=== PATIENT | female | born 1990 | race Caucasian/White ===

== ENCOUNTER 2018-10-30 21:18 | Emergency (ER) | payer OTHER ==
[2018-10-30] MEDS ORDERED: Lactated Ringer's 1,000 ML IV STA (21:47)
[2018-10-30 22:11] LABS: BASO % 0.3 % (0.0-2.0); EOS # 0.3 K/uL (0.0-0.7); EOS % 1.7 % (0.0-4.0); HEMOGLOBIN 14.8 g/dL (12.0-16.0); LYMPH # 2.4 K/uL (1.0-4.3); MEAN CELL VOLUME 88.1 fl (81.0-99.0); MEAN CORPUSCULAR HEMOGLOBIN 29.4 pg (27.0-31.0); MEAN CORPUSCULAR HGB CONC 33.3 g/dL (33.0-37.0); MEAN PLATELET VOLUME 9.5 fl (7.2-11.7); MONO # 0.8 K/uL (0.0-0.8); MONO % 5.1 % (0.0-10.0); NEUT # 12.6 K/uL (1.8-7.0); NEUT % 77.9 % (50.0-75.0); RBC 5.02 Mil/uL (3.80-5.20); WHITE BLOOD COUNT 16.2 K/uL (4.8-10.8)
[2018-10-30 22:19] LABS: ALB/GLOB RATIO 1.2 (1.0-2.1); ALBUMIN 4.6 g/dL (3.5-5.0); BLOOD UREA NITROGEN 17 mg/dl (7-17); CALCIUM 10.4 mg/dL (8.4-10.2); GFR NON-AFRICAN AMERICAN > 60; LIPASE 164 U/L (23-300)
[2018-10-30 22:23] LABS: ALT/SGPT 39 U/L (9-52); AST/SGOT 28 U/L (14-36)
--- NOTE | 2018-10-30 22:35 | ED PDOC ---
HPI: Abdomen Time Seen by Provider: 10/30/18 21:26 Chief Complaint (Nursing): Abdominal Pain Chief Complaint (Provider): Abdominal Pain History Per: Patient History/Exam Limitations: no limitations Onset/Duration Of Symptoms: Hrs (1.5) Current Symptoms Are (Timing): Still Present Location Of Pain/Discomfort: Epigastric, Periumbilical Additional Complaint(s): 28 year old female, with a past medical history of iron deficiency, presents to the ED reporting sudden onset of abdominal pain for 1.5 hours [employer] in the epigastric and periumbilical area associated with back pain. Patient reports she has been having x4 episodes of nonbloody and watery diarrhea for a day. She states she has a normal appetite. She reports having nausea and chills but denies vomiting or fever. Patient took probiotic earlier today to help with diarrhea but hasn't taken any other medications. She also denies urinary symptoms, sick contacts, or recent travel. She indicates she had eaten food brought from [place] last night but other family that had eaten this are fine. PMD: Dr. Lester Past Medical History Reviewed: Historical Data, Nursing Documentation, Vital Signs Vital Signs: Last Vital Signs Temp 97.6 F 10/30/18 21:22 Pulse 84 10/30/18 21:22 Resp 84 H 10/30/18 21:22 BP 101/66 10/30/18 21:22 Pulse Ox 100 10/30/18 21:22 - Medical History Other PMH: Iron deficiency - Surgical History Surgical History: No Surg Hx - Family History Family History: States: No Known Family Hx - Social History Current smoker - smoking cessation education provided: No - Home Medications Home Medications: Ambulatory Orders Medication Instructions Recorded Dicyclomine [Bentyl] 20 mg PO Q12 PRN #20 tab 10/31/18 - Allergies Allergies/Adverse Reactions: Allergies Allergy/AdvReac Type Severity Reaction Status Date / Time No Known Allergies Allergy Verified 10/30/18 21:22 Review of Systems ROS Statement: Except As Marked, All Systems Reviewed And Found Negative (as per HPI) Constitutional: Positive for: Chills. Negative for: Fever Gastrointestinal: Positive for: Nausea, Abdominal Pain, Diarrhea. Negative for: Vomiting Genitourinary Female: Negative for: Dysuria, Hematuria Musculoskeletal: Positive for: Back Pain Physical Exam - Reviewed Nursing Documentation Reviewed: Yes Vital Signs Reviewed: Yes - Physical Exam Appears: Positive for: Non-toxic, In Acute Distress (mild painful distress) Head Exam: Positive for: ATRAUMATIC, NORMOCEPHALIC Skin: Positive for: Warm, Dry Eye Exam: Positive for: EOMI, PERRL ENT: Negative for: Pharyngeal Erythema Neck: Positive for: Painless ROM, Supple Cardiovascular/Chest: Positive for: Regular Rate, Rhythm. Negative for: Murmur Respiratory: Positive for: Normal Breath Sounds. Negative for: Respiratory Distress Gastrointestinal/Abdominal: Positive for: Tenderness (Diffuse tenderness to palpation of the abdomen), Other ((-) mccullough's sign). Negative for: Mass, Guarding, Rebound Back: Positive for: Normal Inspection. Negative for: L CVA Tenderness, R CVA Tenderness Extremity: Positive for: Normal ROM. Negative for: Deformity Lymphatic: Negative for: Adenopathy Neurologic/Psych: Positive for: Alert. Negative for: Motor/Sensory Deficits - Laboratory Results Result Diagrams: 10/30/18 22:06 10/30/18 22:06 - ECG O2 Sat by Pulse Oximetry: 100 (RA) Pulse Ox Interpretation: Normal Medical Decision Making Medical Decision Making: Initial Impression: Abdominal pain Differential includes but not limited to colitis, enteritis, gastritis, and pancreatitis Initial Plan: --CMP --Lact acid --Lipase stat --ED urine dipstick --ED urine --CBC --Bentyl 20mg PO --Lactated Ringer 1000mL IV --Pepcid 20mg PO --Blood culture Scribe Attestation: Documented by Abhi Slade acting as a scribe for Elizabeth Hatch MD. Provider Scribe Attestation: All medical record entries made by the Scribe were at my direction and personally dictated by me. I have reviewed the chart and agree that the record accurately reflects my personal performance of the history, physical exam, medical decision making, and the department course for this patient. I have also personally directed, reviewed, and agree with the discharge instructions and disposition. Disposition - Clinical Impression Clinical Impression: Abdominal pain - Disposition Disposition Time: 00:00 Condition: STABLE Prescriptions: Dicyclomine [Bentyl] 20 mg PO Q12 PRN #20 tab PRN Reason: abdominal pain/diarrhea Patient Signed Over To: Juancarlos Chicas Handoff Comments: Pending ER workup, reassessment and final ER disposition
[2018-10-30] MEDS ORDERED: Iohexol 240 (50 ml) PO ONE (22:40)
[2018-10-30] MEDS ORDERED: Iohexol 240 (50 ml) ONE (22:56)
[2018-10-30] MEDS ORDERED: Atropine-Diphenoxylate 0.025-2.5 mg Tab ONE (23:31)
[2018-10-31] MEDS ORDERED: Atropine-Diphenoxylate 0.025-2.5 mg Tab PO STA
[2018-10-31] MEDS ORDERED: Sodium Chloride 0.9% 50 ML IV ONE (00:09)
[2018-10-31] MEDS ORDERED: Iohexol 300 100 ML IJ ONE (00:09)
--- NOTE | 2018-10-31 00:42 | ED PDOC ---
- Laboratory Results Result Diagrams: 18 22:06 18 22:06 - ECG O2 Sat by Pulse Oximetry: 100 (RA) Pulse Ox Interpretation: Normal Medical Decision Making Medical Decision Making: Time: 00:00 Patient care endorsed from Dr. Hatch to provider pending CT and reevaluation. 01:32 CT Abd COMMENTS: Diffuse thickening of the terminal ileum. The liver is of uniform attenuation without mass or defect. There is no intra or extrahepatic biliary ductal dilatation. The spleen is normal. The gallbladder is within normal limits. The pancreas is of normal contour and attenuation characteristics. There is no evidence of adrenal mass. Both kidneys demonstrate prompt and equal nephrograms. The kidneys are normal in size, shape and configuration. There is no evidence of renal or ureteral mass. No renal or ureteral calculi are identified. There is no hydroureter or hydronephrosis. No evidence for appendicitis. There is no other bowel wall thickening. No evidence for small or large bowel obstruction. There is no evidence of abdominal ascites or lymphadenopathy. There is no evidence of intrinsic or extrinsic bladder mass. There is no pelvic ascites or lymphadenopathy. Images of the lung bases show no evidence of pleural or parenchymal mass. There are no pleural effusions. The bony structures are free of lytic or blastic le sions. IMPRESSION: Diffuse thickening of the wall of the terminal ileum suggestive of ileitis. This can be secondary to infectious pathology like enteritis. Differential diagnosis includes inflammatory bowel disease. No perforation or pneumatosis intestinalis. 01:45 CT Report reviewed. Patient reports significant improvement of symptoms. Patient is stable for discharge. Diagnosis is gastroenteritis. Scribe Attestation: Documented by Marcos Biswas acting as a scribe for Froy John MD. Provider Scribe Attestation: All medical record entries made by the Scribe were at my direction and personally dictated by me. I have reviewed the chart and agree that the record accurately reflects my personal performance of the history, physical exam, medical decision making, and the department course for this patient. I have also personally directed, reviewed, and agree with the discharge instructions and disposition. Disposition - Clinical Impression Clinical Impression: Gastroenteritis - POA Present On Arrival: None - Disposition Disposition: Routine/Home Disposition Time: 01:45 Condition: IMPROVED Additional Instructions: NOLBERTO ROSA, thank you for letting us take care of you today. Your provider was Froy John MD and you were treated for ABD PAIN, BACK PAIN. The emergency medical care you received today was directed at your acute symptoms. If you were prescribed any medication, please fill it and take as directed. It may take several days for your symptoms to resolve. Return to the Emergency Department if your symptoms worsen, do not improve, or if you have any other problems. Please contact your doctor or call one of the physicians/clinics you have been referred to that are listed on the Patient Visit Information form that is included in your discharge packet. Bring any paperwork you were given at discharge with you along with any medications you are taking to your follow up visit. Our treatment cannot replace ongoing medical care by a primary care provider outside of the emergency department. Thank you for allowing the [facility] team to be part of your care today. If you had an X-Ray or CT scan: A Radiologist will review the ED reading if any change in treatment is needed we will contact you. If you had a blood, urine, or wound culture: It will take several days for the results, if any change in treatment is needed we will contact you. If you had an STI test: It will take 48 hours for the results. Please call after 1 week if you have not heard back. Prescriptions: Dicyclomine [Bentyl] 20 mg PO Q12 PRN #20 tab PRN Reason: abdominal pain/diarrhea Instructions: Gastroenteritis (ED) Forms: [employer] (Turkish), [facility] ED School/Work Excuse
[2018-10-31 01:50] VITALS: BP 112/78; PULSE 74; RESP 16; TEMP 98.2
[2018-10-31 06:48] VITALS: O2SAT 100
--- NOTE | 2018-10-31 12:08 | CT ---
Date of service: 10/31/2018 PROCEDURE: CT Abdomen and Pelvis with contrast HISTORY: abd pain COMPARISON: None. TECHNIQUE: Intravenous contrast dose: 90 cc Omnipaque 300. Radiation dose: Total exam DLP = 215.76 mGy-cm. This CT exam was performed using one or more of the following dose reduction techniques: Automated exposure control, adjustment of the mA and/or kV according to patient size, and/or use of iterative reconstruction technique. FINDINGS: LOWER THORAX: Unremarkable. LIVER: Unremarkable. No gross lesion or ductal dilatation. GALLBLADDER AND BILE DUCTS: Unremarkable. PANCREAS: Unremarkable. No gross lesion or ductal dilatation. SPLEEN: Unremarkable. ADRENALS: Unremarkable. No mass. KIDNEYS AND URETERS: Unremarkable. No hydronephrosis. No solid mass. VASCULATURE: Unremarkable. No aortic aneurysm. No atherosclerotic calcification or mural plaque present. BOWEL: Thickening of loops of distal small bowel consistent with enteritis. This affects primarily pelvic loops of small bowel extending to the ileocecal valve. Adjacent cecum and appendix are unremarkable. APPENDIX: Normal appendix. PERITONEUM: Unremarkable. No free fluid. No free air. LYMPH NODES: Unremarkable. No enlarged lymph nodes. BLADDER: Unremarkable. REPRODUCTIVE: Unremarkable. BONES: No acute fracture. OTHER FINDINGS: None. IMPRESSION: Mild enteritis without mechanical obstruction. Concordant results (preliminary interpretation) provided by [facility]. Procedure Completed: 00:24. Preliminary Report: Dictated and Authenticated: 01:32. Final Interpretation: 12:05.
== END 2018-10-31 01:54 | disposition home or self-care (01) ==
LOC: H.ER 21:18
DX: K52.9 Noninfective gastroenteritis and colitis, unspecified (principal)
CPT/HCPCS: 74177; 80053; 81025; 83605; 83690; 85025; 87040; 87045; 99284; J7120; Q9966; Q9967